=== PATIENT | female | born 1985 | race Asian ===

== ENCOUNTER 2016-07-08 14:36 | Emergency (ER) | payer OTHER ==
[~2016-07-08] VITALS: Ht 162.6 cm; Wt 59.0 kg
[2016-07-08 19:09] VITALS: BP 123/63; TEMP 98.2
== END 2016-07-08 19:10 | disposition home or self-care (01) ==
LOC: ED 14:36
DX: N94.89 Other specified conditions associated with female genital organs and menstrual cycle (principal); N94.6 Dysmenorrhea, unspecified
CPT/HCPCS: 96372; 99283; J1885

== ENCOUNTER 2017-02-21 17:47 | Emergency (ER) | payer OTHER ==
[~2017-02-21] VITALS: Ht 162.6 cm; Wt 59.0 kg
[2017-02-21 18:28] LABS: PLATELET COUNT 188 K/uL (152-353)
[2017-02-21 18:35] LABS: POTASSIUM 2.8 mmol/L (3.6-5.2)
[2017-02-21 21:50] VITALS: BP 104/59; TEMP 98.8
== END 2017-02-21 21:52 | disposition home or self-care (01) ==
LOC: ED 17:47
DX: N39.0 Urinary tract infection, site not specified (principal); R31.9 Hematuria, unspecified; N83.201 Unspecified ovarian cyst, right side
CPT/HCPCS: 36415; 80053; 81000; 81025; 85027; 99283; Q9963

== ENCOUNTER 2017-06-19 18:54 | Emergency (ER) | payer OTHER ==
[~2017-06-19] VITALS: Ht 154.9 cm; Wt 63.5 kg
[2017-06-19 20:07] LABS: PLATELET COUNT 182 K/uL (152-353)
[2017-06-19 20:25] LABS: POTASSIUM 3.2 mmol/L (3.6-5.2)
[2017-06-20 00:28] VITALS: BP 115/70; TEMP 98.7
== END 2017-06-20 00:32 | disposition home or self-care (01) ==
LOC: ED 18:54
PROVIDERS: Specialist
DX: R10.2 Pelvic and perineal pain (principal)
CPT/HCPCS: 80048; 81000; 81025; 85027; 87490; 87590; 96372; 99284; J0696; J1885

== ENCOUNTER 2017-10-14 07:44 | Emergency (ER) | payer OTHER ==
[~2017-10-14] VITALS: Ht 165.1 cm; Wt 54.4 kg
[2017-10-14 07:49] VITALS: TEMP 97.3
[2017-10-14 08:44] LABS: PLATELET COUNT 205 K/uL (152-353)
[2017-10-14 12:20] VITALS: BP 106/72
== END 2017-10-14 12:20 | disposition home or self-care (01) ==
LOC: ED 07:44
DX: R10.9 Unspecified abdominal pain (principal); N83.12 Corpus luteum cyst of left ovary
CPT/HCPCS: 36415; 80053; 81000; 82150; 83690; 85027; 96361; 96365; 96374; 99284; J2405; Q9963

== ENCOUNTER 2018-05-06 15:21 | Emergency (ER) | payer OTHER ==
[~2018-05-06] VITALS: Ht 165.1 cm; Wt 61.2 kg
[2018-05-06 16:04] LABS: PLATELET COUNT 219 K/uL (152-353)
[2018-05-06 16:13] LABS: POTASSIUM 3.2 mmol/L (3.6-5.2)
[2018-05-06 16:59] VITALS: BP 99/63; TEMP 97.7
== END 2018-05-06 16:59 | disposition home or self-care (01) ==
LOC: ED 15:21
PROVIDERS: Emergency Medicine
DX: K59.00 Constipation, unspecified (principal); K29.70 Gastritis, unspecified, without bleeding
CPT/HCPCS: 36415; 74022; 80053; 81000; 81025; 85027; 99283

== ENCOUNTER 2019-07-06 09:29 | Emergency (ER) | payer OTHER ==
[~2019-07-06] VITALS: Ht 162.6 cm; Wt 61.2 kg
[2019-07-06 09:43] VITALS: BP 101/64; TEMP 98.3
== END 2019-07-06 11:03 | disposition home or self-care (01) ==
LOC: ED 09:29
DX: S70.02XA Contusion of left hip, initial encounter (principal); W01.0XXA Fall on same level from slipping, tripping and stumbling without subsequent striking against object, initial encounter; Y92.090 Kitchen in other non-institutional residence as the place of occurrence of the external cause
CPT/HCPCS: 81025; 99283

== ENCOUNTER 2019-07-18 08:02 | Emergency (ER) | payer OTHER ==
[~2019-07-18] VITALS: Ht 162.6 cm; Wt 61.2 kg
[2019-07-18 08:10] VITALS: TEMP 98.9
[2019-07-18 08:45] LABS: PLATELET COUNT 159 K/uL (152-353)
[2019-07-18 08:53] LABS: POTASSIUM 3.6 mmol/L (3.6-5.2)
[2019-07-18 09:38] VITALS: BP 126/78
== END 2019-07-18 09:38 | disposition home or self-care (01) ==
LOC: ED 08:02
PROVIDERS: Emergency Medicine
DX: J02.9 Acute pharyngitis, unspecified (principal)
CPT/HCPCS: 80053; 82550; 82553; 84484; 85027; 87502; 87651; 93005; 96372; 99283; J0696

== ENCOUNTER 2019-11-15 12:38 | Emergency (ER) | payer OTHER ==
[~2019-11-15] VITALS: Ht 160 cm; Wt 61.2 kg
[2019-11-15 12:50] VITALS: TEMP 99.1
[2019-11-15 14:30] VITALS: BP 105/73
== END 2019-11-15 14:30 | disposition home or self-care (01) ==
LOC: ED 12:38
DX: J01.80 Other acute sinusitis (principal); G44.209 Tension-type headache, unspecified, not intractable; F17.210 Nicotine dependence, cigarettes, uncomplicated
CPT/HCPCS: 87502; 87651; 96372; 99283; J0696; J1885

== ENCOUNTER 2020-02-22 09:58 | Emergency (ER) | payer OTHER ==
[~2020-02-22] VITALS: Ht 160 cm; Wt 61.2 kg
[2020-02-22 10:04] VITALS: TEMP 98.9
[2020-02-22 11:15] VITALS: BP 110/70
== END 2020-02-22 11:15 | disposition home or self-care (01) ==
LOC: ED 09:58
DX: K04.7 Periapical abscess without sinus (principal); K08.89 Other specified disorders of teeth and supporting structures; J32.8 Other chronic sinusitis
CPT/HCPCS: 96372; 99283; J1885

== ENCOUNTER → 2020-03-16 12:30 | Emergency (ER) | payer OTHER ==
[~2020-03-16] VITALS: Ht 160 cm; Wt 63.5 kg
[2020-03-16 13:06] LABS: PLATELET COUNT 164 K/uL (152-353)
[2020-03-16 13:36] LABS: POTASSIUM 3.7 mmol/L (3.6-5.2)
[2020-03-16 14:05] VITALS: BP 105/66; TEMP 99
== END | disposition home or self-care (01) ==
LOC: ED 12:30
PROVIDERS: Hospitalist
DX: J06.9 Acute upper respiratory infection, unspecified (principal); R50.9 Fever, unspecified; Z20.828 Contact with and (suspected) exposure to other viral communicable diseases; F17.210 Nicotine dependence, cigarettes, uncomplicated
CPT/HCPCS: 80053; 85027; 87502; 87635; 87651; 99283; U0003

== ENCOUNTER 2020-04-07 09:19 | Emergency (ER) | payer OTHER ==
[~2020-04-07] VITALS: Ht 160 cm; Wt 61.2 kg
[2020-04-07 09:30] VITALS: TEMP 98.9
[2020-04-07 10:30] LABS: PLATELET COUNT 176 K/uL (152-353)
[2020-04-07 10:42] LABS: POTASSIUM 3.5 mmol/L (3.6-5.2)
[2020-04-07 14:30] VITALS: BP 121/78
== END 2020-04-07 14:34 | disposition short-term general hospital (02) ==
LOC: ED 09:19
PROVIDERS: Emergency Medicine Emergency Medical Services
DX: R10.2 Pelvic and perineal pain (principal)
CPT/HCPCS: 36415; 80053; 81000; 81025; 84702; 85027; 96360; 96361; 96375; 99284; J1885; J2405

== ENCOUNTER 2020-08-29 07:20 | Emergency (ER) | payer OTHER ==
[~2020-08-29] VITALS: Ht 160 cm; Wt 59.0 kg
[2020-08-29 07:25] VITALS: TEMP 97.7
[2020-08-29 07:57] LABS: PLATELET COUNT 167 K/uL (152-353)
[2020-08-29 08:00] LABS: POTASSIUM 3.6 mmol/L (3.6-5.2)
[2020-08-29 10:05] VITALS: BP 112/78
== END 2020-08-29 10:05 | disposition home or self-care (01) ==
LOC: ED 07:20
PROVIDERS: Hospitalist
DX: K29.60 Other gastritis without bleeding (principal); K21.9 Gastro-esophageal reflux disease without esophagitis
CPT/HCPCS: 80053; 81000; 81025; 83690; 85027; 99283

== ENCOUNTER 2021-03-04 09:47 | Emergency (ER) | payer OTHER ==
[~2021-03-04] VITALS: Ht 160 cm; Wt 59.0 kg
[2021-03-04 11:40] VITALS: BP 112/63; TEMP 98.4
== END 2021-03-04 11:40 | disposition home or self-care (01) ==
LOC: ED 09:47
DX: J06.9 Acute upper respiratory infection, unspecified (principal); Z20.822 Contact with and (suspected) exposure to COVID-19
CPT/HCPCS: 81000; 87502; 87635; 87651; 99283; U0003

== ENCOUNTER 2021-06-28 19:28 | Emergency (ER) | payer OTHER ==
[~2021-06-28] VITALS: Ht 160 cm; Wt 59.0 kg
[2021-06-28 20:00] LABS: PLATELET COUNT 155 K/uL (152-353)
[2021-06-28 20:08] LABS: POTASSIUM 3.5 mmol/L (3.6-5.2)
[2021-06-28 22:24] VITALS: BP 112/72; TEMP 98.7
== END 2021-06-28 22:25 | disposition home or self-care (01) ==
LOC: ED 19:28
PROVIDERS: Hospitalist
DX: K29.60 Other gastritis without bleeding (principal); F19.10 Other psychoactive substance abuse, uncomplicated; N39.0 Urinary tract infection, site not specified; R11.2 Nausea with vomiting, unspecified
CPT/HCPCS: 36415; 80053; 80307; 80320; 81000; 81025; 83690; 85027; 87077; 87086; 87088; 87186; 96360; 96365; 96375; 99284; J0696; J1885; J2405; Q9963

== ENCOUNTER 2022-01-03 10:56 | Emergency (ER) | payer BC ==
[~2022-01-03] VITALS: Ht 160 cm; Wt 59.0 kg
[2022-01-03 10:59] VITALS: TEMP 98.5
[2022-01-03 11:17] VITALS: BP 115/71
== END 2022-01-03 11:19 | disposition home or self-care (01) ==
LOC: ED 10:56
DX: K02.9 Dental caries, unspecified (principal)
CPT/HCPCS: 99281

== ENCOUNTER 2022-04-09 08:27 | Emergency (ER) | payer OTHER ==
[~2022-04-09] VITALS: Ht 160 cm; Wt 59.0 kg
[2022-04-09 08:36] VITALS: BP 99/55; TEMP 98.6
== END 2022-04-09 08:55 | disposition home or self-care (01) ==
LOC: ED 08:27
DX: M62.838 Other muscle spasm (principal); M43.6 Torticollis
CPT/HCPCS: 99281

== ENCOUNTER 2022-05-09 13:26 | Emergency (ER) | payer OTHER ==
[~2022-05-09] VITALS: Ht 162.6 cm; Wt 59.0 kg
[2022-05-09 13:35] VITALS: TEMP 98.1
[2022-05-09 16:38] VITALS: BP 121/71
== END 2022-05-09 16:38 | disposition home or self-care (01) ==
LOC: ED 13:26
DX: S96.811A Strain of other specified muscles and tendons at ankle and foot level, right foot, initial encounter (principal); M25.461 Effusion, right knee; G89.29 Other chronic pain; X58.XXXA Exposure to other specified factors, initial encounter; Y93.02 Activity, running; Y92.89 Other specified places as the place of occurrence of the external cause
CPT/HCPCS: 84550; 86140; 99283